=== PATIENT | male | born 1930 | race Two or more races ===

== ENCOUNTER → 2016-08-03 | Outpatient (CLI) | payer MEDICARE, OTHER ==
--- NOTE | 2016-08-03 17:27 | RADRPT ---
PROCEDURE: Right knee x-ray CLINICAL INDICATION: PAIN TECHNIQUE: AP, lateral, and sunrise views of the knee were obtained. COMPARISON: None FINDINGS: No acute fracture or dislocation is seen. There is normal mineralization. There are severe degenerative changes of the right knee joint including joint space narrowing rules and osteophytes involving the lateral greater than medial and patellofemoral compartments. Small ost eophytes are noted to project off the superior pole of the patella. Bone on bone contact and endpla te sclerosis are noted in the lateral compartment. There is no joint effusion. There is no significant soft tissue swelling. IMPRESSION: Severe degenerative changes of the right knee involving the lateral greater than medial and patellof emoral compartments, as above. RPTAT: EE Physician Jamir Date Time Electronically viewed and signed by Physician Jamir on 08/03/2016 17:27 /
--- NOTE | 2016-08-04 03:13 | HKNOTE ---
DATE OF SERVICE: 08/03/2016 MAIN COMPLAINT: Pain in the right knee. HISTORY OF MAIN COMPLAINT: The patient is an 86-year-old male who complains of pain in his right kn ee. He has had the pain for several years but has become very much worse over the last [address] Whelan about the knee. Fluid was removed from the right knee, and the knee was injected with cortisone approximately a year ago. This did not give him any relief at all. The patient now referred to me for further evaluation of his painful knee. PRESENT COMPLAINTS: The patient gets pain in the right knee with every step that he takes. He uses a cane. He cannot walk more than "20 meters" at a time. He has a long history of problems with hi s lower back. He has not had any surgery to his back. He has had multiple epidural injections in t he past. The patient's knee pain is aggravated by walking, weightbearing and stair climbing. The knee swells . It does not feel unstable, and it does not seem to lock. He uses a cane all the time. He limps all the time. He does not have a shoe lift. He can put on his own shoes and socks. PAST ORTHOPEDIC HISTORY PREVIOUS ORTHOPEDIC OPERATIONS: None. PRIOR CORTISONE INTAKE: Epidurals. ALCOHOL INTAKE: None. OTHER JOINT PROBLEMS: "All my joints." PRIOR INJURIES TO HIPS OR KNEES: None. WORK STATUS: The patient is retired. PAST MEDICAL HISTORY: 1. Hypertension. 2. "Heart problems." PAST SURGICAL HISTORY: 1. Appendectomy. 2. Cataract removal. ALLERGIES: VITAMIN B12. MEDICATIONS: Include: 1. Folic acid. 2. Clonidine. 3. Cyclobenzaprine. 4. Finasteride. 5. Furosemide. 6. Spironolactone. 7. Lyrica. 8. Tramadol. 9. Ferrous sulfate. 10. Terazosin. 11. Atorvastatin. SYSTEMS REVIEW: The patient is prone to dyspepsia. Difficulty with urination. Gait disturbance. Hypertension. Ankles swell from time to time. HABITS: The patient quit smoking 50 years ago. Alcohol intake: None. FINANCIAL ANALYST: Dr. Medardo Whelan, [address], [address] [address]. DIRECTOR EDUCATIONAL RADIO: Dr. Rachell Blankenship, [address], [address], [place], [place] [address]. PHYSICAL EXAMINATION: GENERAL: A rather fragile-looking 86-year-old man. He comes in with his daughter. He speaks no En glish. His daughter translates. VITAL SIGNS: Height 5 feet 3 inches. Weight 180 pounds. Blood pressure 185/65, temperature 98.1. GAIT: The patient walks with a cane. He has a marked antalgic gait. It is difficult for him to ge t onto the examination couch. HIPS: Both hips have a full range of motion without pain. RIGHT KNEE: The right knee shows normal alignment. Active and passive extension lacks 10 degrees. Active and passive flexion lacks 15 degrees. The medial and lateral collateral ligaments and cruciat e ligaments are intact. Jj test is negative. There is 2+ effusion. There is 6+ crepitus in th e knee, none in the patella. There is no tenderness, scarring, or cysts. The patella tracks normal ly. There is no tenderness on the articular surface of the patella or in the patellar groove. The Q angle is normal. IMAGING: Plain x-rays of the right knee obtained today show exceedingly severe degenerative osteoar thritis of all 3 compartments of the knee. There is lateral subluxation of the tibia on the femur. Extensive osteophyte formation, subchondral cyst formation and subchondral sclerosis. DIAGNOSES: 1. 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 2. Hypertension. 3. Ischemic heart disease. 4. ALLERGIC TO VITAMIN B12. MANAGEMENT: The patient was advised through his daughter that had he been 10 years younger or in ve ry much better health, I might recommend a knee replacement operation, but certainly I do not recomm end an operation in this fragile, elderly person. The patient is advised through his daughter that I'll give him a cortisone injection into the knee a nd that if that gives him any degree of relief, he can return every 3 months for a repeat injection as needed. Under sterile conditions, he was given injection of 2 mL of Kenalog, 6 mL of 2% lidocaine into the r ight knee. He is given a prescription for tramadol to take for breakthrough pain or if and when the cortisone i njections no longer give him any relief. Dictated By: MICKY PARKER/PETE Conf#: [id number] DID#: [id number] CC: RACHELL BLANKENSHIP MD; Medardo Whelan;*[facility]*
== END | disposition home or self-care (01) ==
LOC: HKI 14:11
DX: M25.561 Pain in right knee (principal); M17.11 Unilateral primary osteoarthritis, right knee; I10 Essential (primary) hypertension
CPT/HCPCS: 20610; 73562; G0463

== ENCOUNTER → 2016-11-23 | Outpatient (CLI) | payer MEDICARE, OTHER ==
--- NOTE | 2016-11-23 15:34 | PN ---
Date/Time of Note Date/Time of Note DATE: 11/23/16 TIME: 15:29 Outpatient Progress Note Chief Complaint Right knee injection HPI 86-year-old male presents today for follow-up for ongoing right knee pain secondary to severe degenerative right knee osteoarthritis. Was seen as a new patient by Dr. Collado on 08/03/2016 and joint aspiration along with cortisone injection was performed on this date. Since then, patient states that he was relieved of pain for about 2-2-1/2 months before pain gradually returned. Side note patient's daughter is translating today's visit. Patient' s daughter states that he has had no injury such as fall since he was last seen. Continues with ongoing pain with an average of 6-7/10 on the pain scale. Difficult for him to perform his daily activities. Joint replacement was discussed but given patient's comorbid medical conditions, it was not recommended at this time. Patient's presents today for repeat evaluation and possible repeat injection. Review of Systems Const: No Fever, no chills, no Fatigue, normal appetite, no diaphoresis. Resp: No SOB, no wheezing, no chest pain. CV: No chest pain, no palpitaions, no PASTOR. Physical Exam Height 5 foot 3 inches, weight 180 pounds General Appearance: well-developed, well-nourished, in no acute distress. Right knee: Significant effusion to the right knee. Mild to moderate tenderness to palpation to the right knee. Patient is able to flex at around 110-120 today. Near full extension. Gait is abnormal and antalgic as there is slight limp. Negative calf pain. Normal sensory examination to light touch. 5/5 strength on resistance with flexion and extension. Assessment/Plan Problems: (1) Osteoarthritis of right knee * Patient is given verbal and written consent to proceed with right knee joint aspiration followed by cortisone injection.Superior lateral portion of the right knee was marked. Area was sterilized with Betadine swabs. Local anesthesia was achieved with 0.25% Marcaine. After local anesthesia was achieved, a 16-gauge needle used to inject into the knee joint. About 80 cc of fluid was extracted from the knee.Following fluid aspiration, cortisone injection using 2 cc of 40 mg/mL Kenalog along with 6 cc of 0.25% Marcaine injected into the knee. Area was cleaned and sterilized once more after injection and Band-Aid was applied. Observe for 3-5 minutes after injection before discharge. * Anti-inflammatories as needed. * Patient was advised to follow up on as-needed basis for repeat evaluation. BRITTNY STONER PA-C Nov 23, 2016 15:34
== END | disposition home or self-care (01) ==
LOC: HKI 14:46
DX: M17.11 Unilateral primary osteoarthritis, right knee (principal)
CPT/HCPCS: 20610

== ENCOUNTER → 2017-06-03 | Outpatient (CLI) | END | disposition home or self-care (01) ==